=== PATIENT | female | born 1950 | race Two or more races ===

== ENCOUNTER 2020-12-20 09:52 | Day surgery (SDC) | payer OTHER ==
[~2020-12-20 09:52] MED LIST: SIMVASTATIN10 MG PO; SYNTHROID100 MCG PO
== END 2020-12-20 19:50 | disposition home or self-care (01) ==
LOC: CIR.AMB 09:52
PROVIDERS: ATTEND Colon & Rectal Surgery
DX: K64.8 Other hemorrhoids (principal); Z20.822 Contact with and (suspected) exposure to COVID-19